=== PATIENT | male | born 1995 | race Caucasian/White ===

== ENCOUNTER 2017-04-28 11:58 | Emergency (ER) | payer OTHER ==
[~2017-04-28] VITALS: Ht 152 cm; Wt 66.0 kg
[2017-04-28 12:11] VITALS: BP 140/86; PULSE 83; TEMP 99.3
== END 2017-04-28 13:00 | disposition home or self-care (01) ==
LOC: COL.ER 11:58
DX: S61.412A Laceration without foreign body of left hand, initial encounter (principal); X58.XXXA Exposure to other specified factors, initial encounter; Y92.009 Unspecified place in unspecified non-institutional (private) residence as the place of occurrence of the external cause